=== PATIENT | male | born 1990 | race Two or more races ===

== ENCOUNTER 2025-03-26 07:27 | Emergency (ER) | payer OTHER ==
[~2025-03-26] VITALS: Ht 167.6 cm; Wt 76.7 kg
[2025-03-26] MEDS ORDERED: NORFLEX100MG PO (09:22)
[2025-03-26] MEDS ORDERED: DICLOFENAC SODI75 MG PO (09:22)
[2025-03-26] MEDS ORDERED: KETOROLAC TROMETHAMINE 60 MG VIAL IM ONE (09:30)
[2025-03-26] MEDS ORDERED: ORPHENADRINE CITRATE 30 MG/ML AMPUL IM ONE (09:30)
[2025-03-26] MEDS ORDERED: DEXAMETHASONE SODIUM PHOSPHATE 4 MG/ML VIAL IM ONE (09:30)
== END 2025-03-26 08:21 | disposition home or self-care (01) ==
LOC: ER 07:27
DX: M54.89 Other dorsalgia (principal)